=== PATIENT | male | born 1990 | race Caucasian/White ===

== ENCOUNTER 2020-05-08 23:45 | Emergency (ER) | payer MEDICARE, MEDICAID ==
[~2020-05-08] VITALS: Ht 183 cm; Wt 105.0 kg
[2020-05-08] MEDS ORDERED: POLY238P10 (23:54)
[2020-05-08] MEDS ORDERED: DIVA500T15 (23:54)
[2020-05-08] MEDS ORDERED: FLUO20CA46 (23:54)
[2020-05-08] MEDS ORDERED: ZIPR20CA24 (23:54)
[2020-05-08] MEDS ORDERED: BENZ0.5T42 (23:54)
[2020-05-08] MEDS ORDERED: DOXY50TA9 (23:54)
[2020-05-08] MEDS ORDERED: POLY119P2 (23:54)
[2020-05-08] MEDS ORDERED: QUET400T54 (23:54)
[2020-05-08] MEDS ORDERED: FESO8TAB (23:54)
[2020-05-08] MEDS ORDERED: DESM0.2T29 (23:54)
[2020-05-08] MEDS ORDERED: LORA10TA7 (23:54)
[2020-05-08] MEDS ORDERED: OMEP20TA33 (23:54)
[2020-05-08] MEDS ORDERED: DOXY50CA2 (23:54)
[2020-05-09] MEDS ORDERED: LIDOCAINE/EPI 2% 1:100,00 (XYLOCAINE) 20 ML VIAL INJ ONE
[2020-05-09] MEDS ORDERED: ONDANSETRON 4 MG (ZOFRAN) ORAL DISSOLVE TAB ONE (00:19)
[2020-05-09] MEDS ORDERED: RX-LORAZEPAM (ATIVAN) 0.5 MG TAB PPK#4 PO STA (01:32)
[2020-05-09] MEDS ORDERED: LORA-404 PO ×2 (01:38→02:01)
--- NOTE | 2020-05-09 01:38 | ED General ---
General Chief Complaint: Laceration Stated Complaint: LAC Nursing Triage Note: left wrist laceration self inflicted, approx. 7.6cm. Nursing Sepsis Screen: No Definite Risk Source of Information: Patient, EMS, Family, Police Exam Limitations: No Limitations History of Present Illness Date Seen by Provider: May 08, 2020 Time Seen by Provider: 23:48 Initial Comments This 29-year-old young man with intellectual disabilities is a client of [facility] and is brought to the emergency room via EMS after a self-inflicted injury to the left wrist. Patient has been upset about being isolated at home during COVID precautions. He has been wanting to take walks outside by himself. He has not been allowed to do this and became angry. He states he was angry and did not want to hurt anyone else so he decided to hurt himself. He took a broken light bulb and sliced his left wrist. When asked if this was intended to end his life or if he was suicidal, he remarks emphatically "hell no!" bleeding is controlled by the time of his visit. Because there was concern about his anger, [place] police accompanied the patient. Father later commented the patient is afraid of hospitals and police. [facility] staff inquired about doing a mental health screening. He has had some medication changes to help with his agitation but had this outburst despite those medication changes. Allergies and Home Medications Allergies Coded Allergies: No Allergy Information Available (Unverified , 05/08/20) pt unsure Home Medications Lorazepam 0.5 Mg Tablet, 1-2 TAB PO Q4H PRN for AGITATION Prescribed by: CURTIS BEGUM on 05/09/20 0201 Patient Home Medication List Home Medication List Reviewed: Yes Review of Systems Review of Systems Constitutional: no symptoms reported EENTM: no symptoms reported Respiratory: no symptoms reported Cardiovascular: no symptoms reported Gastrointestinal: no symptoms reported Genitourinary: no symptoms reported Musculoskeletal: no symptoms reported Skin: see HPI Psychiatric/Neurological: See HPI Hematologic/Lymphatic: No Symptoms Reported Immunological/Allergic: no symptoms reported Past Klnutet-Eoyhnr-Dldutq Hx Past Med/Social Hx: Reviewed Nursing Past Med/Soc Hx Patient Social History Alcohol Use: Denies Use Recreational Drug Use: No Smoking Status: Unknown if Ever Smoked 2nd Hand Smoke Exposure: No Recent Foreign Travel: No Contact w/Someone Who Travel: No Recent Infectious Disease Expo: No Recent Hopitalizations: No Physical Abuse: No Sexual Abuse: No Mistreated: No Fear: No Immunizations Up To Date Tetanus Booster (TDap): Unknown Seasonal Allergies Seasonal Allergies: No Past Medical History Surgeries: No Respiratory: No Cardiac: No Neurological: Yes (intellectual disabilities) Genitourinary: No Gastrointestinal: No Musculoskeletal: No Endocrine: No HEENT: No Cancer: No Psychosocial: Yes Integumentary: No Blood Disorders: No Physical Exam Vital Signs Vital Signs - First Documented 05/08/20 23:45 Temp 37.2 Pulse 107 Resp 18 B/P (MAP) 159/108 (125) Pulse Ox 93 O2 Delivery Room Air Capillary Refill : Less Than 3 Seconds Height, Weight, BMI Height: '" Weight: lbs. oz. kg; 31.00 BMI Method: General Appearance: No Apparent Distress, WD/WN HEENT: PERRL/EOMI, Normal ENT Inspection Neck: Normal Inspection Respiratory: Lungs Clear, Normal Breath Sounds, No Accessory Muscle Use Cardiovascular: Regular Rate, Rhythm, No Edema, No Murmur Gastrointestinal: Normal Bowel Sounds, Non Tender, Soft Extremity: No Pedal Edema, Other (6 cm laceration on the left wrist into the subcutaneous tissue. Minimal bleeding. Tendon function normal with normal flexion and manager hris at the wrist and hand. Normal distal pulses.) Neurologic/Psychiatric: Alert, Oriented x3, No Motor/Sensory Deficits, Normal Mood/Affect, pecan gatherer II-XII Norm as Tested Skin: Normal Color, Warm/Dry Procedures/Interventions Wound Location: Upper Extremities Other Wound Location volar surface of left wrist Wound Length (cm): 6 Wound's Depth, Shape: sub Q Wound Explored: clean Irrigated w/ Saline (ccs): 200 Betadine Prep?: Yes Anesthesia: Lidocaine w/ Epi Volume Anesthetic (ccs): 5 Suture: Prolene Suture Size: 4-0 Number of Sutures: 9 Sterile Dressing Applied?: Yes Progress Wound was rinsed with saline. The area was then anesthetized with lidocaine with epinephrine first by spraying the wound and then by injection after cleaning the skin with alcohol. Wound was then scrubbed with saline and chlorhexidine and then rinsed again. Betadine prep was applied and wound was approximated with 4-0 Prolene. Patient tolerated the procedure with some sandrita quent redirection. Dressing was applied by nursing staff. Progress/Results/Core Measures Suspected Sepsis Recent Fever Within 48 Hours: No Infection Criteria Present: None New/Unexplained Altered Menta: No Sepsis Screen: No Definite Risk SIRS Temperature: Pulse: 107 Respiratory Rate: 18 Blood Pressure 159 /108 Mean: 125 Results/Orders My Orders Orders - CURTIS SURESH MD Lidocaine/Epi 2% 1:100,000 (Xylocaine/Ep (05/09/20 00:00) Ondansetron Oral Dissolve Tab (Zofran (05/09/20 00:19) Rx-Lorazepam (Rx-Ativan) (05/09/20 01:32) Dipht,Pertuss(Acell),Tet Adult (Boostrix (05/09/20 01:45) Medications Given in ED Vital Signs/I&O Capillary Refill : Less Than 3 Seconds Blood Pressure Mean: 125 Progress Note : Progress Note Patient's wound was approximated with sutures. I discussed the situation with his father. His father and I both believe the institutionalized in order admitting the patient to an inpatient psychiatric facility would be more harmful than beneficial. Patient states he has "learned his lesson" and is not interested in acting out in this way again due to the consequences. Since father's not interested in the behavioral health screening, the [facility] network support administrator did not pursue this further. Patient received a tetanus immunization and was dismissed home with staff. Departure Impression Primary Impression: Laceration of left wrist Qualified Codes: S61.512A - Laceration without foreign body of left wrist, initial encounter Additional Impression: Anger reaction Disposition: 01 HOME, SELF-CARE Condition: Improved Departure-Patient Inst. Decision time for Depature: 01:34 Referrals: NO,LOCAL PHYSICIAN (PCP/Family) Primary Care Physician Patient Instructions: Laceration Repair With Stitches (DC) Add. Discharge Instructions: Keep the wound clean and dry except for normal showering and handwashing. You may allow soapy water to run over the wound but do not scrub the wound directly as this may disrupt the stitches. Cover the wound when active or in dirty environments. Do not submerge until sutures are removed. Monitor the wound for signs of infection such as increasing pain, increasing swelling, redness, puslike drainage, or fever. Return to care promptly if you notice these symptoms. Tylenol and/or ibuprofen may be used for pain. Return in 10 days to have sutures removed. Use Ativan 0.5 mg as provided 1-2 tabs every 4 hours as needed for agitation. Promptly follow up with the behavioral health education prescriber on Sunday or earlier if possible to adjust medications or provide other therapies. Modify patient's care plan to allow for healthy outlets of frustration or agitation as much as possible. Return to the emergency room or call 911 with any further serious concerns of health or safety. All discharge instructions reviewed with patient and/or family. Voiced understanding. Scripts Lorazepam (Ativan) 0.5 Mg Tablet 1-2 TAB PO Q4H PRN for AGITATION, #10 TAB Prov: CURTIS SURESH MD 05/09/20 CURTIS SURESH MD May 09, 2020 01:38
[2020-05-09] MEDS ORDERED: TETANUS,DIPTH,PERTUSS P/F (BOOSTRIX) 0.5 ML VIAL IM ONE (01:45)
[2020-05-09 01:52] VITALS: BP 151/98
== END 2020-05-09 02:05 | disposition home or self-care (01) ==
LOC: EDUNIT# 23:45 → ER 23:48
DX: S61.512A Laceration without foreign body of left wrist, initial encounter (principal); R45.4 Irritability and anger; Z23 Encounter for immunization; X78.9XXA Intentional self-harm by unspecified sharp object, initial encounter
CPT/HCPCS: 12002; 90715

== ENCOUNTER 2021-09-06 05:31 | Outpatient (RCR) | payer MEDICARE, MEDICAID ==
[~2021-09-06] VITALS: Ht 181 cm; Wt 110.5 kg
[~2021-09-06 05:31] MED LIST: BENZ0.5T42 PO; DESM0.2T29 PO; DIVA500T15 PO; DOXY50CA2 PO; DOXY50TA9; FESO8TAB; FLUO20CA48 PO; LORA-404 PO; LORA10TA7 PO; OMEP20TA33 PO; POLY119P2; POLY238P10; QUET400T54; ZIPR20CA24
[2021-09-07] MEDS ORDERED: HYDR25TA4 PO (11:33)
[2021-09-07] MEDS ORDERED: TRAZ-227 PO (11:53)
[2021-09-07] MEDS ORDERED: LORA-404 PO (11:53)
== END 2021-09-09 | disposition home or self-care (01) ==
LOC: PREOP 05:31 → EDSTATUS 10:15
PROVIDERS: ATTEND Dentist General Practice
DX: Z01.818 Encounter for other preprocedural examination (principal)

== ENCOUNTER 2021-09-12 05:29 | Outpatient (RCR) | payer MEDICARE, MEDICAID ==
[~2021-09-12 05:29] MED LIST changes: +HYDR25TA4 PO; +TRAZ-227 PO
[2021-09-13] MEDS ORDERED: ACET1TAB43 PO (16:32)
== END 2021-09-12 09:40 | disposition home or self-care (01) ==
LOC: PREOP 05:29
PROVIDERS: ATTEND Dentist General Practice
DX: Z01.812 Encounter for preprocedural laboratory examination (principal); K02.9 Dental caries, unspecified; Z20.822 Contact with and (suspected) exposure to COVID-19
CPT/HCPCS: 87635

== ENCOUNTER 2021-09-13 10:35 | Day surgery (SDC) | payer MEDICARE, MEDICAID ==
[~2021-09-13] VITALS: Ht 181 cm; Wt 110.5 kg
[2021-09-13] VITALS (9 sets, daily range): BP systolic 126–150; BP diastolic 90–102
[2021-09-13] MEDS: LACTATED RINGERS 1,000 ML IV PRN ×2 (11:00→13:23)
[2021-09-13] MEDS ORDERED: LIDOCAINE PF 2% 5 ML (XYLOCAINE) VIAL ONE (12:02)
[2021-09-13] MEDS ORDERED: ROCURONIUM 10 MG/ML 5 ML SYRINGE IV ONE (12:02)
[2021-09-13] MEDS ORDERED: SEVOFLURANE (ULTANE) 15 ML INHAL SOLN ONE (12:02)
[2021-09-13] MEDS ORDERED: proPOfol 200 MG/20 ML (DIPRIVAN) VIAL IV ONE (12:02)
[2021-09-13] MEDS ORDERED: MIDAZOLAM 2 MG/2 ML (VERSED) VIAL ONE (12:03)
[2021-09-13] MEDS ORDERED: fentaNYL INJ 100 MCG/2 ML AMP ONE ×2 (12:03→13:07)
[2021-09-13] MEDS ORDERED: PHENYLEPHRINE 0.25% NASAL SPR (NEO-SYNEPHRINE) 15 ML NS ONE ×2 (12:35→13:00)
[2021-09-13] MEDS ORDERED: ONDANSETRON 4 MG/2 ML (SDV) Z0FRAN IVP PRN (15:45)
[2021-09-13] MEDS ORDERED: HYDROmorphone 2 MG/ML VIAL (DILAUDID) IV ONE (15:45)
--- NOTE | 2021-09-13 15:48 | Anesthesia-General Post-Op ---
General Patient Condition Mental Status/LOC: Same as Preop Cardiovascular: Satisfactory Nausea/Vomiting: Absent Respiratory: Satisfactory Pain: Controlled Complications: Absent Post Op Complications Complications None Follow Up Care/Instructions Patient Instructions None needed. Anesthesia/Patient Condition Patient Condition Patient is doing well, no complaints, stable vital signs, no apparent adverse anesthesia problems. No complications reported per nursing. [place] [facility] [place] Yes DON GANT CRNA Sep 13, 2021 15:48
[2021-09-13] MEDS ORDERED: ACET1TAB43 PO (16:32)
--- NOTE | 2021-09-14 11:52 | OPERATIVE REPORT ---
DATE OF SERVICE: 09/13/2021 PREOPERATIVE DIAGNOSIS: Dental caries. POSTOPERATIVE DIAGNOSIS: Dental caries. OPERATION PERFORMED: Repair of numerous carious teeth utilizing composite resin, stainless steel crowns, endodontic therapy, and extractions. DESCRIPTION OF PROCEDURE: The patient was treated on an outpatient basis and following a suitable premedication, taken to the operating room, and placed in the supine position upon the table. Anesthesia was induced. Nasotracheal intubation accomplished and general anesthesia was administered. A throat pack consisting of two wet 4 x 4 gauze sponges was placed in the oropharynx and maintained in place throughout the procedure. Mouth opening was maintained at all times with simple digital pressure. No mechanical retractors of any kind were utilized. Caries was removed from teeth numbers 11 and 12 and subsequently repaired with composite resin. Root canal was performed on tooth #28. Stainless steel crown was then placed on tooth #28 and also on #30. Teeth numbers 7, 18, 22, 31, and 32 were then extracted. The patient tolerated this procedure quite nicely and following a thorough debridement of the oral cavity with a copious flow of water, adequate suction and compressed air, the throat pack was removed. The patient was extubated and taken to the recovery in quite satisfactory condition. Job ID: [id number] DocumentID: [id number] Dictated Date: 09/14/2021 07:22:22 Surgical Elastic Knitter Date: 09/14/2021 11:51:59 Dictated By: KRISTI PUGH DDS
== END 2021-09-13 17:05 | disposition home or self-care (01) ==
LOC: SDC 10:35
PROVIDERS: ATTEND Dentist General Practice
DX: K02.9 Dental caries, unspecified (principal); I10 Essential (primary) hypertension; Z79.899 Other long term (current) drug therapy; Z80.42 Family history of malignant neoplasm of prostate; Z80.8 Family history of malignant neoplasm of other organs or systems
CPT/HCPCS: 87081

== ENCOUNTER 2023-01-29 14:39 | Emergency (ER) | payer MEDICARE, MEDICAID ==
[~2023-01-29 14:39] MED LIST changes: +ACET-11 PO; +DOXY50TA16; -DOXY50TA9
[2023-01-29] MEDS ORDERED: NS IV 1000 ML 1,000 ML IV STA (14:58)
--- NOTE | 2023-01-29 15:02 | ED General ---
General Chief Complaint: General Problems/Pain Stated Complaint: DEHYDRATION Source of Information: Patient Exam Limitations: No Limitations History of Present Illness Date Seen by Provider: January 29, 2023 Time Seen by Provider: 15:00 Initial Comments Patient is a 32-year-old male with a history of retardation, intellectual disability, depression, urinary incontinence, OCD who presents to ED for from [place] for dehydration. Patient has a ordered that states to go get IV fluids. Patient here with transportation staff who has not aware why the patient is here. Patient states he has had chronic diarrhea. Denies any blood or mucousy stool. No vomiting. Reports a mild cough. Denies abdominal pain, chest pain, shortness of breath, sore throat, ear pain, fever, chills, body aches. Patient reports normal urination. Patient was seen at Dr. Lucas's office on January 12 for diarrhea. Patient has been on a laxative. Patient never stopped the laxative. Staff at [facility] states patient looked pale and appeared weak. Denied of any odor with the stool. No recent antibiotic use Allergies and Home Medications Allergies Coded Allergies: diphenhydramine (Verified Allergy, Unknown, 09/07/21) olanzapine (Verified Allergy, Unknown, 09/07/21) Patient Home Medication List Home Medication List Reviewed: Yes Acetaminophen with Codeine (Acetaminophen-Cod #3 Tablet) 1 Each Tablet, 1-2 EACH PO EVERY 3-4 HRS Prescribed by: ERWIN STOUT on 09/13/21 163 Benztropine Mesylate (Benztropine Mesylate) 0.5 Mg Tablet, 0.5 MG PO BID, (Reported) Entered as Reported by: MAIA SIMMS on 05/08/202353 Desmopressin Acetate (Desmopressin Acetate) 0.2 Mg Tablet, 0.2 MG PO TID, (Reported) Entered as Reported by: MAIA SIMMS on 05/08/202353 Divalproex Sodium (Divalproex Sodium ER) 500 Mg Tab.er.24h, 1,500 MG PO HS, (Reported) Entered as Reported by: MAIA SIMMS on 05/08/202353 Doxycycline Hyclate (Doxycycline Hyclate) 50 Mg Capsule, 50 MG PO HS, (Reported) Entered as Reported by: MAIA SIMMS on 05/08/202353 Fluoxetine HCl (Fluoxetine HCl) 20 Mg Capsule, 60 MG PO DAILY, (Reported) Entered as Reported by: MAIA SIMMS on 05/08/20 235 Hydrochlorothiazide (Hydrochlorothiazide) 25 Mg Tablet, 25 MG PO DAILY, (Reported) Entered as Reported by: CELESTINA BROWN on 09/07/21 1133 Loratadine (Loratadine) 10 Mg Tablet, 10 MG PO DAILY, (Reported) Entered as Reported by: MAIA SIMMS on 05/08/20 235 Lorazepam (Ativan) 0.5 Mg Tablet, 0.5 MG PO DAILY, (Reported) Entered as Reported by: CELESTINA BROWN on 09/07/21 1153 Omeprazole Magnesium (Prilosec Otc) 20 Mg Tablet.dr, 20 MG PO DAILY, (Reported) Entered as Reported by: MAIA SIMMS on 05/08/202353 Trazodone HCl (Trazodone HCl) 100 Mg Tablet, 100 MG PO HS, (Reported) Entered as Reported by: CELESTINA BROWN on 09/07/21 115 Review of Systems Review of Systems Constitutional: No chills, No diaphoresis, No fever, No malaise, No weakness EENTM: No ear pain, No blurred vision, No double vision, No hoarseness, No mouth pain Respiratory: No cough, No dyspnea on exertion Cardiovascular: No chest pain, No edema Gastrointestinal: No abdominal pain; diarrhea; No nausea, No vomiting Genitourinary: No decreased output, No discharge, No dysuria, No frequency Musculoskeletal: No back pain, No joint pain, No joint swelling, No muscle pain Psychiatric/Neurological: Denies Anxiety All Other Systems Reviewed Negative Unless Noted: Yes Past Upvizgn-Mdqziw-Ftzhgm Hx Immunizations Up To Date Tetanus Booster (TDap): Unknown First/Initial COVID19 Vaccinat: yes Second COVID19 Vaccination Carlitos: yes Third COVID19 Vaccination Date: 09/07/21 Seasonal Allergies Seasonal Allergies: No Past Medical History Surgeries: Yes (dental) Respiratory: No Currently Using CPAP: No Currently Using BIPAP: No Cardiac: Yes Hypertension Neurological: Yes (intellectual disabilities) Genitourinary: No Gastrointestinal: No Musculoskeletal: No Endocrine: No HEENT: No (dental caries) Cancer: No Psychosocial: Yes (impulsive control) Integumentary: No Blood Disorders: No Physical Exam Vital Signs Vital Signs - First Documented 01/29/23 14:54 Pulse 85 Resp 18 B/P (MAP) 133/101 (112) Pulse Ox 96 O2 Delivery Room Air Capillary Refill : Height, Weight, BMI Height: '" Weight: lbs. oz. kg; 33.72 BMI Method: General Appearance: No Apparent Distress Eyes: Bilateral Eye Normal Inspection, Bilateral Eye PERRL, Bilateral Eye EOMI HEENT: PERRL/EOMI, TMs Normal, Normal ENT Inspection, Pharynx Normal Neck: Full Range of Motion, Normal Inspection, Non Tender, Supple Respiratory: Chest Non Tender, Lungs Clear, Normal Breath Sounds, No Accessory Muscle Use, No Respiratory Distress Cardiovascular: Regular Rate, Rhythm, No Edema, No Gallop, No JVD, No Murmur Gastrointestinal: Normal Bowel Sounds, No Organomegaly, No Pulsatile Mass, Non Tender Back: Normal Inspection, No CVA Tenderness Extremity: Normal Capillary Refill, Normal Inspection, Normal Range of Motion, Non Tender Neurologic/Psychiatric: Alert, Oriented x3, No Motor/Sensory Deficits, Normal Mood/Affect, template layout worker II-XII Norm as Tested Skin: Normal Color, Warm/Dry Procedures/Interventions Suture Size: 4-0 Progress/Results/Core Measures Suspected Sepsis SIRS Temperature: Pulse: Respiratory Rate: Laboratory Tests 01/29/23 15:35: White Blood Count 6.8 Blood Pressure / Mean: Laboratory Tests 01/29/23 15:35: Creatinine 0.75, Platelet Count 225, Total Bilirubin 0.3 Results/Orders Lab Results Laboratory Tests Test 01/29/23 15:35 Range/Units White Blood Count 6.8 4.3-11.0 10^3/uL Red Blood Count 5.07 4.30-5.52 10^6/uL Hemoglobin 14.8 13.3-17.7 g/dL Hematocrit 43 40-54 % Mean Corpuscular Volume 84 80-99 fL Mean Corpuscular Hemoglobin 29 25-34 pg Mean Corpuscular Hemoglobin Concent 35 32-36 g/dL Red Cell Distribution Width 13.8 10.0-14.5 % Platelet Count 225 130-400 10^3/uL Mean Platelet Volume 8.6 L 9.0-12.2 fL Immature Granulocyte % (Auto) 0 % Neutrophils (%) (Auto) 45 42-75 % Lymphocytes (%) (Auto) 39 12-44 % Monocytes (%) (Auto) 13 H 0-12 % Eosinophils (%) (Auto) 2 0-10 % Basophils (%) (Auto) 0 0-10 % Neutrophils # (Auto) 3.1 1.8-7.8 10^3/uL Lymphocytes # (Auto) 2.7 1.0-4.0 10^3/uL Monocytes # (Auto) 0.9 0.0-1.0 10^3/uL Eosinophils # (Auto) 0.2 0.0-0.3 10^3/uL Basophils # (Auto) 0.0 0.0-0.1 10^3/uL Immature Granulocyte # (Auto) 0.0 0.0-0.1 10^3/uL Sodium Level 136 135-145 MMOL/L Potassium Level 3.5 L 3.6-5.0 MMOL/L Chloride Level 101 98-107 MMOL/L Carbon Dioxide Level 23 21-32 MMOL/L Anion Gap 12 5-14 MMOL/L Blood Urea Nitrogen 10 7-18 MG/DL Creatinine 0.75 0.60-1.30 MG/DL Estimat Glomerular Filtration Rate 122 BUN/Creatinine Ratio 13 Glucose Level 95 70-105 MG/DL Calcium Level 8.8 8.5-10.1 MG/DL Corrected Calcium 8.7 8.5-10.1 MG/DL Magnesium Level 2.0 1.6-2.4 MG/DL Total Bilirubin 0.3 0.1-1.0 MG/DL Aspartate Amino Transf (AST/SGOT) 31 5-34 U/L Alanine Aminotransferase (ALT/SGPT) 66 H 0-55 U/L Alkaline Phosphatase 42 40-136 U/L Total Protein 7.0 6.4-8.2 GM/DL Albumin 4.1 3.2-4.5 GM/DL My Orders Orders - SOL MESSER Cbc With Automated Diff (01/29/23 14:58) Comprehensive Metabolic Panel (01/29/23 14:58) Magnesium (01/29/23 14:58) Ns Iv 1000 Ml (Sodium Chloride 0.9%) (01/29/23 14:58) Vital Signs/I&O 01/29/23 14:54 Pulse 85 Resp 18 B/P (MAP) 133/101 (112) Pulse Ox 96 O2 Delivery Room Air Capillary Refill : Departure Communication (PCP) Reviewed previous ER visits, H&P, lab testing. Patient was sent over to the ER by his primary care physician Dr. Lucas for dehydration. Intermittent diarrhea for the past several months. Denies of any blood or mucousy stool. Denies any odor or recent antibiotic use. No current abdominal pain. Denies of any current symptoms. Order was given for IV fluids for concern for dehydration. No bowel movement here. Differential diagnosis of diarrhea, electrolyte abnormality, anemia. Staff at [facility] patient appeared weak today. Cap refill less than 2. Moist mucous membranes. Not tachycardic. CBC, CMP, magnesium grossly unremarkable. Urinated here but did not collect sample. Patient does not appear dehydrated. Unclear etiology of this diarrhea. Due to no abdominal tenderness on palpation and length of diarrhea outpatient follow- up. Return precaution were discussed. Staff agrees with plan of action. No change in medication. No recent travels or surgeries. No change in diet. Does not appear toxic or septic. Impression Primary Impression: Dehydration Disposition: 01 HOME, SELF-CARE Condition: Stable Departure-Patient Inst. Decision time for Depature: 16:29 Referrals: YA LUCAS MD (PCP/Family) Primary Care Physician Patient Instructions: Dehydration, Adult (DC) SOL MESSER January 29, 2023 15:02
[2023-01-29 15:42] LABS: BASOPHILS % (AUTO) 0 % (0-10); EOSINOPHILS # (AUTO) 0.2 10^3/uL (0.0-0.3); EOSINOPHILS % (AUTO) 2 % (0-10); HEMATOCRIT 43 % (40-54); HEMOGLOBIN 14.8 g/dL (13.3-17.7); LYMPHOCYTES # (AUTO) 2.7 10^3/uL (1.0-4.0); LYMPHOCYTES % (AUTO) 39 % (12-44); MEAN CORPUSCULAR HEMOGLOBIN 29 pg (25-34); MEAN CORPUSCULAR HGB CONC 35 g/dL (32-36); MEAN CORPUSCULAR VOLUME 84 fL (80-99); MEAN PLATELET VOLUME 8.6 fL (9.0-12.2); MONOCYTES # (AUTO) 0.9 10^3/uL (0.0-1.0); MONOCYTES % (AUTO) 13 % (0-12); NEUTROPHILS # (AUTO) 3.1 10^3/uL (1.8-7.8); NEUTROPHILS % (AUTO) 45 % (42-75); PLATELET COUNT 225 10^3/uL (130-400); WHITE BLOOD COUNT 6.8 10^3/uL (4.3-11.0)
[2023-01-29 15:54] LABS: ALBUMIN 4.1 GM/DL (3.2-4.5); POTASSIUM 3.5 MMOL/L (3.6-5.0)
[2023-01-29 15:55] LABS: CALCIUM 8.8 MG/DL (8.5-10.1)
[2023-01-29 15:58] LABS: BILIRUBIN,TOTAL 0.3 MG/DL (0.1-1.0)
[2023-01-29 16:00] LABS: CREATININE SERUM 0.75 MG/DL (0.60-1.30)
[2023-01-29 16:33] VITALS: BP 140/96
== END 2023-01-29 16:35 | disposition home or self-care (01) ==
LOC: EDUNIT# 14:39 → ER 14:40
DX: E86.0 Dehydration (principal)
CPT/HCPCS: 36415; 80053; 83735; 85025